=== PATIENT | male | born 1990 | race Caucasian/White ===

== ENCOUNTER 2022-06-22 14:42 | Day surgery (SDC) | payer BC ==
[2022-06-22] MEDS ORDERED: metroNIDAZOLE/Normal Saline 500 MG in Premix Bag 1 BAG IV ONE (15:35)
[2022-06-22] MEDS ORDERED: Clindamycin Phosphate in D5W 900 MG in Premix Bag 1 BAG IV ONE ×2 (15:35)
[2022-06-22] MEDS ORDERED: HYDROmorphone 0.5 MG/0.5 ML Syringe IVPUSH PRN ×2 (15:36→17:48)
[2022-06-22] MEDS ORDERED: fentaNYL 100 MCG/2 ML SDV IVPUSH PRN (17:48)
== END 2022-06-22 20:07 | disposition home or self-care (01) ==
LOC: JD.ED 14:42 → SUPCPDRO 14:42 → JD.SDS 16:08
PROVIDERS: ATTEND Surgery
DX: K35.80 Unspecified acute appendicitis (principal); Z88.0 Allergy status to penicillin; Z86.16 Personal history of COVID-19; Z87.891 Personal history of nicotine dependence
CPT/HCPCS: 44970; J1170; J3490

== ENCOUNTER → 2022-06-22 | Day surgery (SDC) | payer BC ==
[~2022-06-22] MED LIST: Bupivacaine 0.5%/EPINEPHrine 1:200,000 50 ML MDV ONE; Dexamethasone 4 MG/ML 5 ML MDV ONE; HYDROmorphone 0.5 MG/0.5 ML Syringe ONE; Lactated Ringers 1,000 ML ONE; Lidocaine 1% 5 ML VIAL ONE; Lidocaine 1% with EPINEPHrine 1:100,000 20 ML MDV ONE; Midazolam 1 MG/ML 2 ML SDV ONE; Ondansetron 4 MG/2 ML SDV ONE; Propofol 200 MG/20 ML SDV ONE; Rocuronium 50 MG/5 ML Vial ONE; Sugammadex Sodium 200 MG/2 ML VIAL ONE; fentaNYL 250 MCG/5 ML SDV ONE
== END ==
LOC: JD.SDS 14:30
PROVIDERS: ATTEND Surgery
DX: K35.80 Unspecified acute appendicitis (principal); Z88.0 Allergy status to penicillin; Z86.16 Personal history of COVID-19; Z87.891 Personal history of nicotine dependence
CPT/HCPCS: 44970; J1100; J1170; J2250; J2405; J2704; J3010; J3490; J7120; 00840